=== PATIENT | male | born 1960 | race Caucasian/White ===

== ENCOUNTER 2024-06-04 15:58 | Emergency (ER) | payer MEDICARE, SELFPAY ==
--- NOTE | ~2024-06-04 | XR_ITS ---
[id number] 06/04/2024 16:43 Indication: Chronic left neck pain Procedure: 4 views cervical spine Comparison: 06/29/2008 Findings: Vertebral body heights are maintained. There is disc narrowing at C6-7. There is multilevel uncinate and facet hypertrophy throughout the cervical spine. Odontoid process is normal. Lateral ma sses normally aligned. No prevertebral soft tissue swelling. Impression: 1: Moderate cervical spondylosis. Reviewed, dictated and finalized at location A. Impression: 1: Moderate cervical spondylosis.
[2024-06-04 16:12] VITALS: BP 136/69; PULSE 84; RESP 16; TEMP 36.8; O2SAT 98
--- NOTE | 2024-06-04 16:29 | ED_ITS ---
HPI - Fall General Chief Complaint: Fall Stated Complaint: left shoulder,neck,bicep pain after fall Time Seen by Provider: 06/04/24 16:15 Source: patient and family Mode of arrival: ambulatory Limitations: no limitations History of Present Illness HPI Narrative: Chucky is a 63-year-old male patient presenting to the clinic today with complaints of left-sided shoulder, neck, and bicep pain. Reports he fell back in March and injured the neck. His neck hurts when he turns side to side and the pain goes into his shoulder and biceps. Has pain in the biceps when he lifts his arm. Denies any headache. Discussed this with his primary care doctor and they told him to do stretches. Related Data Home Medications ?Medication ?Instructions ?Recorded ?Confirmed ?Last Taken ?Type apixaban 5 mg tablet (Eliquis) 5 mg PO Q12H 06/04/24 06/04/24 Unknown History losartan 25 mg tablet 25 mg PO DAILY 06/04/24 06/04/24 Unknown History metformin 1,000 mg tablet 1,000 mg PO BID 06/04/24 06/04/24 Unknown History omeprazole 20 mg capsule,delayed 20 mg PO DAILY 06/04/24 06/04/24 Unknown History release ropinirole 0.5 mg tablet 0.5 mg PO DAILY 06/04/24 06/04/24 Unknown History Allergies Allergy/AdvReac Type Severity Reaction Status Date / Time No Known Allergies Allergy Verified 06/04/24 16:47 Review of Systems Review of Systems: Pertinent positives per HPI. Patient denies any fever, chills, rash, headache, visual changes, dizziness, cough, runny nose, sore throat, shortness of breath, chest pain, palpitations, nausea, vomiting, diarrhea, constipation, abdominal pain, or any urinary issues. PMFSH Comments At the time of my signature, I reviewed and agree with the nursing past medical, surgical, social, and family history. There is no relevant family history pertinent to the patient complaint. Exam Narrative: General: Well-developed, well nourished, in no apparent distress Head: Normocephalic, atraumatic. Cardio: Regular rate and rhythm, s1 and s2 normal, no murmur appreciated. Resp: Clear to auscultation bilaterally, no rhonchi, rales, wheezing or rubs. Musculoskeletal: No deformity, tender to palpation over the left trapezius musculature and over the left biceps, pain with turning his head side to side over the cervical trapezius musculature, pain over the left biceps and please use musculature when lifting his left arm above his head, limited range of motion due to pain, muscle strength strong and equal in bilateral upper extremities, hand grasp strong and equal bilaterally, radial pulses strong bilaterally, normal gait and station Course Course Emergency Course: Portions of this record may have been created with voice recognition software. Level of Care: Express Care Visit Vital Signs Vital signs: Vital Signs Temperature 36.8 C 06/04/24 16:12 Pulse Rate 84 06/04/24 16:12 Respiratory Rate 16 06/04/24 16:12 Blood Pressure 136/69 06/04/24 16:12 Pulse Oximetry 98 06/04/24 16:12 Oxygen Delivery Room Air 06/04/24 16:12 Temperature 36.8 C 06/04/24 16:12 Pulse Rate 84 06/04/24 16:12 Respiratory Rate 16 06/04/24 16:12 Blood Pressure 136/69 06/04/24 16:12 Pulse Oximetry 98 06/04/24 16:12 Oxygen Delivery Room Air 06/04/24 16:12 Vital signs reviewed MDM - Fall MDM Narrative Medical decision making narrative: At the time of visit patient is resting comfortably on the exam table. Patient appears to be nontoxic. Diagnostics: Cervical spine x-ray was performed and shows moderate cervical spondylosis. Plan: I suspect patient has trapezius cervical muscular strain/moderate cervical spondylosis. Prescription for Medrol Dosepak and baclofen was sent to the pharmacy.. Supportive measures were discussed with the patient and they voiced understanding discharge instructions and agrees to treatment plan. Return precautions reviewed Differential Diagnosis Differential diagnosis: Likely other (Cervical strain, cervical radiculopathy, degenerative disc disease, bicep strain, nerve impingement) Discharge Plan Discharge Clinical Impression: Strain of cervical portion of left trapezius muscle, Cervical spondylosis Patient Disposition: Home, Self-Care Condition: Stable Instructions: Antibiotic Form, Cervical Strain (ED), Degenerative Disc Disease (ED) Additional Instructions: Take any prescription medication only as prescribed-Medrol Dosepak and baclofen Be mindful of sedation precautions given to you if taking a muscle relaxer. May use heat or ice to the affected area May use blue emu, lidocaine patches, or asper cream to affected area- do not apply heat or ice directly over cream- can cause burn. Complete appropriate neck stretching exercises. Follow up with your PCP in 3-5 days if symptom persist. Patient Language: [place]ican Prescriptions: New methylprednisolone [Medrol (Lb)] 4 mg tablets,dose pack See Rx Instructions PO .COMPLEX Qty: 21 0RF Rx Instructions: orally per package directions baclofen 10 mg tablet 10 mg PO TID PRN (Reason: muscle spasm) 7 Days Qty: 21 0RF No Action Eliquis 5 mg tablet 5 mg PO Q12H losartan 25 mg tablet 25 mg PO DAILY metformin 1,000 mg tablet 1,000 mg PO BID omeprazole 20 mg capsule,delayed release(DR/EC) 20 mg PO DAILY ropinirole 0.5 mg tablet 0.5 mg PO DAILY Follow-up/Referrals: Mary,Jorge Cuevas MD [Primary Care Provider] - Time of Disposition: 17:00 Quality NIHSS Nursing Documentation ED NIHSS nursing documentation: reviewed/agree
== END 2024-06-04 17:09 | disposition home or self-care (01) ==
PROVIDERS: Emergency Provider Nurse Practitioner Family; PCP Family Medicine
DX: S16.1XXA Strain of muscle, fascia and tendon at neck level, initial encounter (principal); W19.XXXA Unspecified fall, initial encounter; I10 Essential (primary) hypertension; E78.00 Pure hypercholesterolemia, unspecified; E11.9 Type 2 diabetes mellitus without complications; Z86.718 Personal history of other venous thrombosis and embolism
CPT/HCPCS: 72040; 99213; G0463

== ENCOUNTER 2025-02-03 10:00 | Emergency (ER) | payer MEDICARE, SELFPAY ==
--- NOTE | ~2025-02-03 | XR_ITS ---
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 Technique: 2 views obtained. Findings: The lungs are clear, no effusion. No pneumothorax. Heart is normal size. Mediastinal and hilar contours are within normal limits. Bony thorax no acute abnormality. Impression: No acute cardiopulmonary abnormality. Reviewed, dictated and finalized at location P. ING AND BUFFING MACHINE OPERATOR Impression: No acute cardiopulmonary abnormality.
--- NOTE | 2025-02-03 10:01 | ED.URI ---
HPI - URI/Sore Throat General Chief Complaint: Upper Respiratory Infection Stated Complaint: Cold Like Time Seen by Provider: 02/03/25 10:01 Source: patient Mode of arrival: ambulatory Limitations: no limitations History of Present Illness HPI Narrative: Chucky is a 64-year-old male patient presenting to the clinic today with complaints of fatigue, runny nose, cough, sneezing, and shortness of breath x 6 days. He reports no known fever, chills, or body aches. Some chest discomfort when coughing- muscle spasms. History of bronchitis. He is a non-smoker. Has taken Nyquil for his symptoms. Related Data Home Medications ?Medication ?Instructions ?Recorded ?Confirmed ?Last Taken ?Type apixaban 5 mg tablet (Eliquis) 5 mg PO Q12H 06/04/24 06/04/24 Unknown History losartan 25 mg tablet 25 mg PO DAILY 06/04/24 06/04/24 Unknown History metformin 1,000 mg tablet 1,000 mg PO BID 06/04/24 06/04/24 Unknown History omeprazole 20 mg capsule,delayed 20 mg PO DAILY 06/04/24 06/04/24 Unknown History release ropinirole 0.5 mg tablet 0.5 mg PO DAILY 06/04/24 06/04/24 Unknown History Allergies Allergy/AdvReac Type Severity Reaction Status Date / Time No Known Allergies Allergy Verified 02/03/25 10:15 Review of Systems Review of Systems: Pertinent positives per HPI. Patient denies any fever, chills, rash, headache, visual changes, dizziness, chest pain, palpitations, nausea, vomiting, diarrhea, constipation, abdominal pain, or any urinary issues. PMFSH Comments At the time of my signature, I reviewed and agree with the nursing past medical, surgical, social, and family history. There is no relevant family history pertinent to the patient complaint. Exam Narrative: General: Well-developed, well nourished, in no apparent distress Head: Normocephalic, atraumatic Eyes: Pupils equally round and reactive to light bilaterally, EOM intact, sclera and conjunctive clear, no discharge, lids normal Ears: TMs intact and clear, ear canals clear, no drainage, grossly hearing normal. Nose: Nares patent, clear discharge, mild inflammation, no sinus tenderness. Mouth: Oral pharynx without lesions or masses, good dentition, MMM. Postnasal drip Neck: Supple, trachea midline, no enlargement of anterior or posterior cervical nodes, no thyroid masses or goiter palpable. Cardio: Regular rate and rhythm, s1 and s2 normal, no murmur appreciated. Resp: Crackles in the left lower bases, no rhonchi, wheezing, or rubs Course Course Emergency Course: Portions of this record may have been created with voice recognition software. Level of Care: Express Care Visit Vital Signs Vital signs: Vital Signs Temperature 36.6 C 02/03/25 10:10 Pulse Rate 107 H 02/03/25 10:10 Respiratory Rate 18 02/03/25 10:10 Blood Pressure 127/79 02/03/25 10:10 Pulse Oximetry 98 02/03/25 10:10 Oxygen Delivery Room Air 02/03/25 10:10 Temperature 36.6 C 02/03/25 10:10 Pulse Rate 107 H 02/03/25 10:10 Respiratory Rate 18 02/03/25 10:10 Blood Pressure 127/79 02/03/25 10:10 Pulse Oximetry 98 02/03/25 10:10 Oxygen Delivery Room Air 02/03/25 10:10 Vital signs reviewed MDM - URI/Sore Throat MDM Narrative Medical decision making narrative: At the time of visit patient is resting comfortably on the exam table. Patient appears to be nontoxic. Complaints of fatigue, runny nose, cough, sneezing, and shortness of breath x 6 days. He reports no known fever, chills, or body aches. Some chest discomfort when coughing- muscle spasms. History of bronchitis. He is a non-smoker. Has taken NyQuil for his symptoms. On exam patient has bilateral TMs intact and congested, clear nasal drainage, mild anterior turbinate inflammation, oral pharynx mildly red with postnasal drip, heart rates regular rate and rhythm, lung sounds-crackles in the left lower bases. Chest x-ray was ordered. Diagnostics: Chest x-ray was performed and was negative for any acute cardiopulmonary process. Plan: I suspect patient has bronchitis. Prescription for prednisone and albuterol inhaler was sent to the pharmacy. Supportive measures were discussed with the patient and they voiced understanding discharge instructions and agrees to treatment plan. Return precautions reviewed Differential Diagnosis Differential diagnosis: Likely upper respiratory infection, otitis media, sinusitis, viral infection, bronchitis, influenza, pharyngitis and other (COVID) Imaging Data Radiologist's impression: ITS Impressions Chest X-Ray 02/03/25 10:40 Impression: No acute cardiopulmonary abnormality. Discharge Plan Discharge Clinical Impression: Bronchitis Patient Disposition: Home Condition: Stable Instructions: Antibiotic Form, Acute Bronchitis (ED) Additional Instructions: Chest x-rays negative for any acute cardiopulmonary process. Take prescription medications only as prescribed-prednisone and albuterol inhaler Increase fluids and stay well hydrated May take Tylenol or motrin as directed on bottle for pain/fever May use Flonase 1 spray in each nare daily May take OTC antihistamines such as Zyrtec or Claritin daily as directed on bottle May apply Vicks vapor rub to chest to open sinuses Sinus rinses for congestion Cepacol spray, cough drops, throat lozenges, warm tea with honey/lemon, gargle salt water to soothe throat BRAT diet for diarrhea Clear liquids x 24 hours then advance as tolerated for nausea/vomiting Go to the ED if you develop a worsening in your condition- high fever not controlled by Tylenol or Motrin, dehydration, weakness, lethargy, shortness of breath, or chest pain. Follow up with your PCP in 3-5 days if symptoms persist. Patient Language: Stateless Prescriptions: New prednisone 20 mg tablet 40 mg PO DAILY 5 Days Qty: 10 0RF albuterol sulfate 90 mcg/actuation HFA aerosol inhaler 2 puff inhalation Q4-6H PRN (Reason: shortness of breath or wheezing) 30 Days Qty: 8.5 0RF No Action baclofen 10 mg tablet 10 mg PO TID PRN (Reason: muscle spasm) 7 Days Qty: 21 0RF Eliquis 5 mg tablet 5 mg PO Q12H losartan 25 mg tablet 25 mg PO DAILY metformin 1,000 mg tablet 1,000 mg PO BID omeprazole 20 mg capsule,delayed release(DR/EC) 20 mg PO DAILY ropinirole 0.5 mg tablet 0.5 mg PO DAILY Follow-up/Referrals: Mary,Jorge Cuevas MD [Primary Care Provider] Time of Disposition: 10:49 Quality NIHSS Nursing Documentation ED NIHSS nursing documentation: reviewed/agree
[2025-02-03 10:10] VITALS: BP 127/79; PULSE 107; RESP 18; TEMP 36.6; O2SAT 98
== END 2025-02-03 11:03 | disposition home or self-care (01) ==
PROVIDERS: Emergency Provider Nurse Practitioner Family; PCP Family Medicine
DX: J40 Bronchitis, not specified as acute or chronic (principal); I10 Essential (primary) hypertension; E11.9 Type 2 diabetes mellitus without complications; Z79.84 Long term (current) use of oral hypoglycemic drugs; E78.00 Pure hypercholesterolemia, unspecified; Z86.718 Personal history of other venous thrombosis and embolism
CPT/HCPCS: 71046; 99213; G0463